=== PATIENT | male | born 2000 | race African-American/Black ===

== ENCOUNTER 2023-09-06 12:37 | Emergency (ER) | payer BC ==
[2023-09-06] MEDS: Lidocaine 2% Viscous Solution 15 ML UD PO ONE (13:36)
[2023-09-06] MEDS: Benzocaine 20% Topical Spray UD MUCMEM ONE (13:36)
== END 2023-09-06 13:45 | disposition home or self-care (01) ==
LOC: MW.ED 12:37
DX: K02.9 Dental caries, unspecified (principal); K08.89 Other specified disorders of teeth and supporting structures
CPT/HCPCS: 99282; A9270; 99283

== ENCOUNTER 2023-11-04 09:17 | Emergency (ER) | payer BC | END 2023-11-04 10:39 | disposition home or self-care (01) | LOC: MW.ED 09:17 | DX: K02.9 Dental caries, unspecified (principal); Z79.899 Other long term (current) drug therapy; Z75.8 Other problems related to medical facilities and other health care | CPT/HCPCS: 99282 ==

== ENCOUNTER 2025-03-13 08:50 | Emergency (ER) | payer SELFPAY ==
[2025-03-13] MEDS: Lidocaine 2% Viscous Solution 15 ML UD PO ONE (09:14)
[2025-03-13] MEDS: Benzocaine 20% Topical Spray UD MUCMEM ONE (09:15)
== END 2025-03-13 09:39 | disposition home or self-care (01) ==
LOC: MW.ED 08:50
DX: K02.9 Dental caries, unspecified (principal); Z79.899 Other long term (current) drug therapy
CPT/HCPCS: 99282; A9270; J3490; 99283